=== PATIENT | female | born 1950 | race Caucasian/White ===

== ENCOUNTER 2017-01-24 19:06 | Inpatient (IN) | payer BC, OTHER ==
--- NOTE | ~2017-01-24 | DS ---
Discharge Summary [address] [place]. [address] NAME: CHARLEY SCHULER : 46 STATUS : DIS IN PAT#: [id number] AGE: 67 ADM/REG DATE : 01/24/17 MR#: [id number] REPORT SERV DATE: 01/29/17 DICTATED BY: MANGO SRINIVASAN DATE: 01/27/17 REPORT STATUS : Draft TRANSCRIBED BY: MODL DATE: 01/27/17 ADMISSION DATE: 01/24/2017 DISCHARGE DATE: 01/27/2017 DISCHARGE DIAGNOSES: 1. Bilateral pulmonary emboli. 2. Acute hypoxemic respiratory failure. 3. Right saphenous vein clot, acute, with previous history of same. 4. One week postop right shoulder surgery. 5. Chronic obstructive pulmonary disease. 6. Hyperlipoproteinemia. 7. Hypothyroid, on replacement. 8. Category 1 carotid disease. 9. Fibromyalgia. 10.Gastroesophageal reflux disease with history of dilatation. 11.B12 deficiency, on replacement. OPERATIONS AND PROCEDURES: None. PRESENT ILLNESS: This is a 67-year-old white female who was taken in transfer from [facility] Emergency Room the afternoon of 01/24/2017 for further evaluation and treatment of pulmonary emboli as outlined on admission history and physical examination dictated by the undersigned. ADDITIONAL HISTORY: Per admission history and physical examination. PHYSICAL EXAMINATION: Per admission history and physical examination. ADMISSION LABORATORY: Per admission history and physical examination. HOSPITAL COURSE: She was admitted with: 1. Bilateral pulmonary emboli, right greater than left. 2. Extensive right saphenous vein clot. 3. Previous history of deep venous thrombosis. 4. Right shoulder surgery, 01/20/2017. She had been started on a heparin drip in the [place] Emergency Room. This was continued. Biomarkers were checked. An echocardiogram to evaluate her right ventricular function and pulmonary pressure was ordered. During the course of her hospitalization, her chest pain resolved. Her dyspnea at rest improved, though she continued to have some dyspnea on exertion. Her right saphenous vein clot remained nodular, but became less tender and erythematous. Her echocardiogram showed borderline left ventricular systolic function with an estimated Discharge Summary [place] [id number] [facility] [place]. [address] NAME: CHARLEY SCHULER : 46 STATUS : DIS IN PAT#: [id number] AGE: 67 ADM/REG DATE : 01/24/17 MR#: [id number] REPORT SERV DATE: 01/29/17 DICTATED BY: MANGO SRINIVASAN DATE: 01/27/17 REPORT STATUS : Draft TRANSCRIBED BY: ÁNGEL DATE: 01/27/17 ejection fraction of 50% with normal right ventricular chamber size and function and no significant valvular regurgitation or stenosis. Troponin was less than 0.02 and BNP 22.4. While hospitalized, she had no mucosal bleeding. Treatment options with heparin transitioning to Coumadin and home Lovenox with Coumadin, Eliquis or Lovenox were all discussed. It was elected to proceed with transitioning to Eliquis. Eliquis was initiated during her hospitalization without side effect. The day of discharge, she had a room air sat of 93% at rest, dropping to 86% with ambulation, but improving to 95% with 2 L. She felt better. She had no chest pain. She had no significant shoulder pain. Her hemoglobin was stable at 10.6. At this point in her hospitalization, it was felt she had achieved a level of improvement and stability where she could be safely discharged to home. She is to see Dr. Swann on Sunday. She was asked to see Dr. Crook this week. She has scheduled followup to see Dr. Mueller. She will continue her home diet and activity. DISCHARGE MEDICATIONS: Lipitor 10 mg daily, vitamin B12 1000 mcg daily, vitamin D 10,000 units weekly, levothyroxine 75 mcg daily, Singulair 10 mg daily, multivitamin daily, Prilosec 20 mg daily, Lyrica 75 mg twice daily, Anoro Ellipta 62.5/25 inhaled daily, Ventolin two puffs four times daily as needed. Percocet prescribed post shoulder surgery to use as needed; Eliquis 10 mg daily for seven days, then 5 mg twice daily, duration to be determined by her physicians. Discharge time greater than 30 minutes. DICTATED BY: Mango Srinivasan M.D. DD/ÁNGEL Mango Srinivasan M.D. / [id number] CC: Mango Srinivasan M.D. Waldemar Washington M.D. Brian Negus, M.D. Discharge Summary [address] [address] NAME: CHARLEY SCHULER : 46 STATUS : DIS IN PAT#: [id number] AGE: 67 ADM/REG DATE : 01/24/17 MR#: [id number] REPORT SERV DATE: 01/29/17 DICTATED BY: MANGO SRINIVASAN DATE: 01/27/17 REPORT STATUS : Draft TRANSCRIBED BY: MODL DATE: 01/27/17 MANGO SWANN
--- NOTE | ~2017-01-24 | HP ---
History And Physical [place] [id number] [facility] [place]. [address] NAME: CHARLEY SCHULER : 46 STATUS : ADM IN [facility]#: [id number] AGE: 67 ADM/REG DATE : 01/24/17 MR#: [id number] REPORT SERV DATE: 01/25/17 DICTATED BY: MANGO SRINIVASAN DATE: 01/24/17 REPORT STATUS : Draft TRANSCRIBED BY: MODL DATE: 01/24/17 DATE OF ADMISSION: 01/24/2017 CHIEF COMPLAINT: This is a 67-year-old white female, who is taken in transfer from [facility] [place] [facility] Department this afternoon with a chief complaint of pulmonary embolus. The history was obtained from the patient and from Dr. Elizabeth at [facility] [place] [facility]. HISTORY OF PRESENT ILLNESS: She had right rotator cuff and bicipital tendon surgery on 01/17/2017 at [facility] [place] by Dr. Swann. She thought she was doing well at home until yesterday when she did not feel normal on awakening. She had some dizziness during the day. She developed some shortness of breath and some right-sided pleuritic chest pain without cough, hemoptysis, fever, or chills. Her symptoms progressed. She went to the [facility] [place] Emergency Department today, triaged at 1233 hours. Admission blood pressure 125/63 lying, pulse 95, O2 saturation 93% on room air, respirations 20. Her evaluation there included a CBC; white count 11.2, hemoglobin 11.3, platelets 213,000; and hepatic function panel, total protein 6.7, albumin 3.4, alkaline phosphatase 98, ALT 15, AST 13, total bilirubin 0.6, direct 0.1, indirect 0.5, PTT 27. PT 14. INR 1.1. Magnesium 2.2. Troponin 0.01. Sodium 137, potassium 4.2, chloride 96. CO2 of 29. BUN 15, creatinine 0.8, ionized calcium 1.17. A chest x-ray was done that showed no acute abnormality in the chest. There was gas superior to the right humeral head. An EKG was said to show no acute changes. A CT angiogram of the chest was done. There were multiple bilateral pulmonary emboli, worse on the right. There was no evidence for right heart strain or pulmonary infarct. There were compression fractures of T6 and T12, which appeared old. There was soft tissue swelling and subcutaneous emphysema about the right shoulder. Venous ultrasound imaging was done of the lower extremities. There was no evidence for deep venous thrombosis in either lower extremity, but there was occlusive thrombus throughout the entire right greater saphenous vein. There was a large left popliteal fossa, Carl's cyst. She was started on heparin. Transfer to [facility] was recommended. She preferred to come to [facility]. At this time, she is symptomatically improved regarding her shortness of breath and chest pain. She has not had any recent mucosal bleeding except for some epistaxis. Specifically, no hemoptysis, hematochezia, hematuria, or menorrhagia. She has generally felt well prior to her shoulder surgery, and she is active. She does have a previous history of DVT in her left leg. This was associated with a knee injury. She said she took Coumadin for two to three years. Of note is that she had left knee surgery in 1999 and a hysterectomy and oophorectomy in 2001 without postoperative thromboembolic complications. She has no history of cancer, diabetes, arrhythmias, documented coronary disease, heart History And Physical [address] [address] NAME: CHARLEY SCHULER : 46 STATUS : ADM IN [facility]#: [id number] AGE: 67 ADM/REG DATE : 01/24/17 MR#: [id number] REPORT SERV DATE: 01/25/17 DICTATED BY: MANGO SRINIVSAAN DATE: 01/24/17 REPORT STATUS : Draft TRANSCRIBED BY: MODL DATE: 01/24/17 failure, or hypertension. She has no previous history of stroke or seizure. No previous history of GI bleeding or evaluation for same though she has had screening colonoscopies and upper GI endoscopy with esophageal dilatation for GERD. She has no history of renal stones or tumors. No history of systemic rheumatic disease or immunosuppression. She has no chronic skin disorders. Further medical history does include hypothyroid on replacement, hyperlipidemia, COPD, GERD as noted, and history of syncope in December of last year with negative evaluation by [facility] except for mild carotid disease on ultrasound imaging. Fibromyalgia diagnosed by [place] blood bank technologist. PAST SURGICAL HISTORY: Left knee surgery in 1999, BSO, hysterectomy in 2001, and enucleation OS for eye trauma complications. SOCIAL HISTORY: . Retired. Two healthy sons. No current tobacco, having stopped 10 years ago. No alcohol use. FAMILY HISTORY: Father with myocardial infarction. Mother with leukemia, had polycythemia vera, also breast cancer, and she thinks VTE. Two aunts with breast cancer. One aunt for sure with VTE. ALLERGIES OR INTOLERANCE: Sulfa. HOME MEDICATIONS: Levothyroxine 75 mcg daily, Lipitor 10 mg daily, Singulair 10 mg daily, Lyrica 75 mg twice daily, Anoro Ellipta 6.25/2.5 daily, omeprazole 20 mg daily, multivitamin daily, aspirin 81 mg daily, and Ventolin p.r.n. REVIEW OF SYSTEMS: Complete, done with the patient in room #6110 and negative except as noted above. PHYSICAL EXAMINATION: Current pulse 85, O2 saturation 96% on 2 L, blood pressure 116/56, and temperature 98.3. She is alert, oriented to person, cooperative and appropriate. Her right arm is in a sling and block. She is on 2 L of O2. SKIN: Warm and dry. No rash, petechiae, or ecchymoses noted. Operative site is clean on right shoulder. NODES: Can only adequately palpate neck and none palpated. HEENT: Atraumatic, prosthetic eye OS. OD sclera and conjunctiva clear. Pupils are equal, round, and reactive to light. Extraocular movements intact, OD. Hearing intact. External ears negative. Nose negative. Anterior nares clear. Nasal O2 in place. Lips, gums, mucosa, tongue, posterior pharynx negative. She has upper and lower plate. NECK: No visible JVD or asymmetry. No palpable mass, goiter, or tenderness. Trachea midline. Nontender. LUNGS: Diminished breath sounds bilaterally. No audible adventitious sounds. Normal respiratory effort on O2. HEART: Regular rate and rhythm. No murmur, gallop, rub, or click. Pulses 2+ and symmetric History And Physical [address] [address] NAME: CHARLEY SCHULER : 46 STATUS : ADM IN [facility]#: [id number] AGE: 67 ADM/REG DATE : 01/24/17 MR#: [id number] REPORT SERV DATE: 01/25/17 DICTATED BY: MANGO SRINIVASAN DATE: 01/24/17 REPORT STATUS : Draft TRANSCRIBED BY: MODL DATE: 01/24/17 radial, carotid, and dorsalis pedis. ABDOMEN: Obese, slight epigastric tenderness to palpation. No guarding, rebound, or rigidity. Cannot feel liver, spleen, kidneys, or aortic pulsation. UPPER EXTREMITIES: Right arm in sling with block. Left arm, no synovitis, clubbing, or edema. LOWER EXTREMITIES: Prominent tender right saphenous cord from groin to below knee which is warm and slightly erythematous. Venous stasis changes in lower extremity. No active synovitis. NEUROLOGIC: Mental status normal. Cranial nerves 2-12 normal. Deep tendon reflexes of 1+ left brachioradialis and knee jerk, absent ankle jerks. Sensory intact touch and temperature. PSYCHIATRIC: Slightly anxious and appropriate affect. DATA: See above. ASSESSMENT: This is a 67-year-old white female with: 1. Bilateral pulmonary emboli, right greater than left. 2. Extensive right saphenous clot. 3. Previous history of deep venous thrombosis. 4. Right shoulder surgery, 01/17. 5. Osteoporosis, T6 and T12 compression fracture by CT. 6. Hypothyroid, on replacement. 7. Hyperlipidemia. 8. Chronic obstructive pulmonary disease. 9. Gastroesophageal reflux disease with history of esophageal dilatation. 10.History of syncope, 12/2015. 11.Category 1 carotid disease. 12.Fibromyalgia. PLAN: Continue heparin drip at this time. Check biomarkers, troponin, and BNP. Check echocardiogram for right ventricular function and pulmonary pressure. Decide on NOAC versus heparin, Coumadin, or Lovenox, Coumadin pending same. Continue O2, home medications. Further diagnostic and therapeutic considerations pending above. DD/MODL Mnago Srinivasan M.D. / [id number] CC: Waldemar Cedeño M.D.
[2017-01-24] MEDS ORDERED: LEVOTHYROXIN75 MCG PO (20:31)
[2017-01-24] MEDS ORDERED: PRILO PO (20:32)
[2017-01-24] MEDS ORDERED: LYRICA75 PO (20:32)
[2017-01-24] MEDS ORDERED: ANOROELLIPTA INH (20:32)
[2017-01-24] MEDS ORDERED: SINGULAIR1 PO (20:32)
[2017-01-24] MEDS ORDERED: LIPITOR10 PO (20:32)
[2017-01-24] MEDS ORDERED: VITAMIN D31000 UNIT PO (20:33)
[2017-01-24] MEDS ORDERED: CYANO1000T PO (20:33)
[2017-01-24] MEDS ORDERED: MULTIVITAMI1 PO (20:33)
[2017-01-24] MEDS ORDERED: HALF81 PO (20:34)
[2017-01-24] MEDS ORDERED: VENTOLIN HFA INH (20:35)
[2017-01-24 20:47] LABS: BASOPHILS 0.3 %; BASOPHILS ABSOLUTE 0.03 10/3/uL (0.0-0.16); EOSINOPHILS 6.3 %; EOSINOPHILS ABSOLUTE 0.74 10/3/uL (0.0-0.53); HEMATOCRIT 39.1 % (36.0-48.0); HEMOGLOBIN 12.4 g/dL (12.0-16.0); IMMATURE GRANULOCYTES 0.5 %; IMMATURE GRANULOCYTES ABSOLUTE 0.06 10/3/uL (0.0-0.11); LYMPHOCYTES 16.8 %; LYMPHOCYTES ABSOLUTE 1.98 10/3/uL (0.67-4.30); MEAN CORPUS HGB CONC 31.7 g/dL (32.0-36.0); MEAN PLATELET VOLUME 10.7 fL (9.2-13.0); MONOCYTES ABSOLUTE 1.06 10/3/uL (0.21-1.20); NEUTROPHILS 67.1 %; NEUTROPHILS ABSOLUTE 7.89 10/3/uL (2.02-8.40); PLATELET COUNT 209 10/3/uL (150-400); RBC DISTRIBUTION WIDTH 14.5 % (12.0-16.0); RED CELL COUNT 4.43 10/6/uL (4.0-5.6); WHITE BLOOD CELLS 11.8 10/3/uL (4.5-10.5)
[2017-01-24 20:48] LABS: MANUAL DIFF NO %; MEAN CORPUSCULAR VOLUME 88.3 fL (80-100)
[2017-01-24 20:56] LABS: INTERNATIONAL NORMAL RATI 1.2 UNITS (-)
[2017-01-24 20:57] LABS: PARTIAL THROMBO TIME 64.3 SEC (22.5-37.2)
[2017-01-25 02:43] LABS: BASOPHILS 0.2 %; BASOPHILS ABSOLUTE 0.02 10/3/uL (0.0-0.16); EOSINOPHILS 7.2 %; EOSINOPHILS ABSOLUTE 0.74 10/3/uL (0.0-0.53); HEMOGLOBIN 10.1 g/dL (12.0-16.0); IMMATURE GRANULOCYTES 0.5 %; IMMATURE GRANULOCYTES ABSOLUTE 0.05 10/3/uL (0.0-0.11); LYMPHOCYTES 16.9 %; LYMPHOCYTES ABSOLUTE 1.73 10/3/uL (0.67-4.30); MEAN CORPUS HGB CONC 33.1 g/dL (32.0-36.0); MEAN CORPUSCULAR HEMOGLOB 28.9 pg (26.0-34.0); MEAN CORPUSCULAR VOLUME 87.4 fL (80-100); MEAN PLATELET VOLUME 10.3 fL (9.2-13.0); MONOCYTES 11.3 %; MONOCYTES ABSOLUTE 1.15 10/3/uL (0.21-1.20); NEUTROPHILS 63.9 %; NEUTROPHILS ABSOLUTE 6.53 10/3/uL (2.02-8.40); PLATELET COUNT 203 10/3/uL (150-400); RBC DISTRIBUTION WIDTH 14.6 % (12.0-16.0); WHITE BLOOD CELLS 10.2 10/3/uL (4.5-10.5)
[2017-01-25 02:45] LABS: HEMATOCRIT 30.5 % (36.0-48.0); RED CELL COUNT 3.49 10/6/uL (4.0-5.6)
[2017-01-25 02:47] LABS: MANUAL DIFF NO %
[2017-01-25 02:49] LABS: INTERNATIONAL NORMAL RATI 1.2 UNITS (-); PROTIME (NOT ORD) 15.3 SEC (12.0-14.5)
[2017-01-25 02:50] LABS: PARTIAL THROMBO TIME 67.7 SEC (22.5-37.2)
[2017-01-25 03:00] LABS: BUN (BLOOD UREA NITROGEN) 12 MG/DL (6-23); CALCIUM, SERUM 8.3 MG/DL (8.5-10.4); CHLORIDE, SERUM 104 MMOL/L (96-112); CO2 (CARBON DIOXIDE) 30 MMOL/L (24-34); CREATININE 0.79 MG/DL (0.55-1.02); GFR AFRICAN AMERICAN 89 ML/MIN (>=60); GFR NON AFRICAN AMERICAN 76 ML/MIN (>=60); GLUCOSE, SERUM 90 MG/DL (60-99); POTASSIUM, SERUM 4.1 MMOL/L (3.5-5.3); SODIUM, SERUM 140 MMOL/L (135-148); TROPONIN I <0.02 NG/ML (<0.05)
[2017-01-26 07:47] LABS: BASOPHILS 0.2 %; BASOPHILS ABSOLUTE 0.02 10/3/uL (0.0-0.16); EOSINOPHILS 6.5 %; EOSINOPHILS ABSOLUTE 0.63 10/3/uL (0.0-0.53); HEMATOCRIT 32.6 % (36.0-48.0); HEMOGLOBIN 10.6 g/dL (12.0-16.0); IMMATURE GRANULOCYTES 0.5 %; IMMATURE GRANULOCYTES ABSOLUTE 0.05 10/3/uL (0.0-0.11); LYMPHOCYTES 12.1 %; LYMPHOCYTES ABSOLUTE 1.17 10/3/uL (0.67-4.30); MEAN CORPUS HGB CONC 32.5 g/dL (32.0-36.0); MEAN CORPUSCULAR HEMOGLOB 28.3 pg (26.0-34.0); MEAN CORPUSCULAR VOLUME 86.9 fL (80-100); MEAN PLATELET VOLUME 10.5 fL (9.2-13.0); MONOCYTES 10.3 %; MONOCYTES ABSOLUTE 0.99 10/3/uL (0.21-1.20); NEUTROPHILS 70.4 %; NEUTROPHILS ABSOLUTE 6.79 10/3/uL (2.02-8.40); PLATELET COUNT 222 10/3/uL (150-400); RBC DISTRIBUTION WIDTH 14.6 % (12.0-16.0); RED CELL COUNT 3.75 10/6/uL (4.0-5.6); WHITE BLOOD CELLS 9.7 10/3/uL (4.5-10.5)
[2017-01-26 07:48] LABS: MANUAL DIFF NO %
[2017-01-26 07:53] LABS: INTERNATIONAL NORMAL RATI 1.2 UNITS (-); PROTIME (NOT ORD) 14.6 SEC (12.0-14.5)
[2017-01-26 07:54] LABS: PARTIAL THROMBO TIME 80.4 SEC (22.5-37.2)
[2017-01-27] MEDS ORDERED: PCET PO (11:09)
[2017-01-27] MEDS ORDERED: ELIQUIS 5 MG TAB5 MG PO (11:11)
== END 2017-01-27 15:56 | disposition home or self-care (01) | DRG 175 ==
LOC: 6NO 19:06
PROVIDERS: Internal Medicine
DX: I26.99 Other pulmonary embolism without acute cor pulmonale (principal); J96.01 Acute respiratory failure with hypoxia; I82.811 Embolism and thrombosis of superficial veins of right lower extremity; K21.9 Gastro-esophageal reflux disease without esophagitis; M79.7 Fibromyalgia; E78.5 Hyperlipidemia, unspecified; M80.08XS Age-related osteoporosis with current pathological fracture, vertebra(e), sequela; E53.8 Deficiency of other specified B group vitamins; Z87.891 Personal history of nicotine dependence; J44.9 Chronic obstructive pulmonary disease, unspecified; Z98.890 Other specified postprocedural states; Z88.2 Allergy status to sulfonamides; Z79.82 Long term (current) use of aspirin; Z86.718 Personal history of other venous thrombosis and embolism; Z90.710 Acquired absence of both cervix and uterus
CPT/HCPCS: 71010; 80048; 83880; 84484; 85025; 85610; 85730; 97161-GP; A9270-GY; C8929; G8978-CI-GP; G8979-CI-GP; G8980-CI-GP; J2405; Q9957